=== PATIENT | male | born 1985 | race Caucasian/White ===

== ENCOUNTER 2017-12-02 21:21 | Emergency (ER) | payer MEDICARE ==
[~2017-12-02] VITALS: Ht 180.3 cm; Wt 78.1 kg
[~2017-12-02 21:21] MED LIST: BUPR100T6 PO; DIVA500T4 PO; PROP20TA PO; QUET200T4 PO
[2017-12-02 21:22] VITALS: BP 152/89
== END 2017-12-02 23:25 | disposition left against medical advice (07) ==
LOC: ED 23:19
DX: R11.0 Nausea (principal); Z53.21 Procedure and treatment not carried out due to patient leaving prior to being seen by health care provider

== ENCOUNTER 2017-12-14 02:53 | Emergency (ER) | payer MEDICARE ==
[~2017-12-14] VITALS: Ht 180.3 cm; Wt 77.3 kg
[2017-12-14 02:55] VITALS: BP 136/84
== END 2017-12-14 03:42 | disposition home or self-care (01) ==
LOC: ED 03:30
DX: Z76.0 Encounter for issue of repeat prescription (principal); F31.4 Bipolar disorder, current episode depressed, severe, without psychotic features
CPT/HCPCS: 99283

== ENCOUNTER 2017-12-20 23:48 | Emergency (ER) | payer MEDICARE ==
[~2017-12-20] VITALS: Ht 177.8 cm; Wt 79.9 kg
[2017-12-20 23:49] VITALS: BP 121/77
[2017-12-21] MEDS ORDERED: ACETAMINOPHEN 500 MG TABLET PO ONE (01:30)
[2017-12-21] MEDS ORDERED: ACETAMINOPHEN 500 MG TABLET ONE (01:34)
== END 2017-12-21 02:27 | disposition home or self-care (01) ==
LOC: ED 23:59
DX: S90.32XA Contusion of left foot, initial encounter (principal); F41.9 Anxiety disorder, unspecified; X58.XXXA Exposure to other specified factors, initial encounter; Y93.89 Activity, other specified; Y92.89 Other specified places as the place of occurrence of the external cause; Y99.8 Other external cause status
CPT/HCPCS: 99284